=== PATIENT | female | born 1985 | race African-American/Black ===

== ENCOUNTER 2019-06-21 02:11 | Emergency (ER) | payer OTHER, MEDICAID ==
[~2019-06-21] VITALS: Ht 162.6 cm; Wt 68.0 kg
[2019-06-21] MEDS ORDERED: HYDROCODONE/ACETAMINOPHEN 5/325MG TABLET PO STA (02:44)
[2019-06-21] MEDS ORDERED: BACITRACIN ZINC OINT UDPKT TOP ONE (02:45)
[2019-06-21] MEDS ORDERED: LIDOCAINE HCL/PF 1% 10 MG/ML 5ML VIAL IJ ONE (02:45)
[2019-06-21] MEDS ORDERED: LIDOCAINE/EPINEPHR/TETRACAINE 3ML TP ONE (03:00)
[2019-06-21 03:14] LABS: BASOPHILS % 0.7 % (0.0-2.0); HEMATOCRIT. 34.9 % (36.0-48.0); LYMPHOCYTES % 31.1 % (20.0-50.0); MEAN CORPUSCULAR HEMOGLOBIN 28.8 pg (28.0-32.0); MEAN CORPUSCULAR VOLUME 83.7 fL (81.0-99.0); MEAN PLATELET VOLUME 8.3 fl (7.4-10.4); MONOCYTES % 6.7 % (2.0-8.0); NEUTROPHILS % 56.5 % (40.0-76.0); PLATELET 307 x1000/uL (130-400); RED BLOOD CELL COUNT 4.18 mill/uL (4.2-5.4)
[2019-06-21 03:15] LABS: HCG SCREEN NEGATIVE
[2019-06-21 03:19] LABS: CHLORIDE 111 mEq/L (98-107)
[2019-06-21] MEDS ORDERED: LIDOCAINE/PRILOCAINE CREAM 5 GM TUBE TOP SCH (03:30)
[2019-06-21 04:48] LABS: CLARITY URINE CLEAR (CLEAR); COLOR URINE YELLOW (YELLOW); KETONES URINE NEGATIVE (NEGATIVE); LEUKOCYTE ESTERASE URINE TRACE (NEGATIVE); NITRITE URINE NEGATIVE (NEGATIVE); OCCULT BLOOD URINE 1+ (NEGATIVE); PH URINE 5.5 (4.5-8.0); PROTEIN URINE NEGATIVE (NEGATIVE); SPECIFIC GRAVITY URINE 1.009 (1.005-1.030); UROBILINOGEN URINE 0.2 E.U./dL (0.2-1.0)
[2019-06-21] MEDS ORDERED: IOHEXOL-300 100 ML BOTTLE ONE (05:32)
[2019-06-21 07:32] VITALS: BP 150/89
== END 2019-06-21 08:10 | disposition home or self-care (01) ==
LOC: ER 02:37
DX: S01.511A Laceration without foreign body of lip, initial encounter (principal); S09.8XXA Other specified injuries of head, initial encounter; S16.1XXA Strain of muscle, fascia and tendon at neck level, initial encounter; R07.89 Other chest pain; V43.62XA Car passenger injured in collision with other type car in traffic accident, initial encounter; Y93.89 Activity, other specified; Y92.488 Other paved roadways as the place of occurrence of the external cause
CPT/HCPCS: 36415; 40650; 70450; 71045; 72125; 74177; 80053; 81003; 81025; 84703; 85025; 99285; J3490; Q9967